=== PATIENT | female | born 1950 | race Caucasian/White ===

== ENCOUNTER 2021-07-31 11:31 | Outpatient (CLI) | payer MEDICARE ==
[2021-07-31 13:14] LABS: Mean Corpuscular HGB CONC 32.7 g/dL (32.0-36.0); Mean Corpuscular Hemoglobin 29.2 pg (27.0-33.0); Mean Corpuscular Volume 89.4 fl (81.6-98.3); Mean Platelet Volume 9.7 fl (7.4-10.4); Platelet Count 269 10x3/uL (150-450); RBC Distribution Width 12.9 % (11.5-14.5); Red Blood Cell (RBC) Count 4.79 10x6/uL (3.90-5.03); White Blood Cell (WBC) Count 6.2 10x3/uL (3.5-10.5)
[2021-07-31 13:16] LABS: Anion Gap 14 mmol/L (10-20); BUN (Urea Nitrogen) 18 mg/dL (9.8-20.1); Calc. Creatinine Clearance 0 mL/min (70-130); Calcium 9.5 mg/dL (7.8-10.44); Carbon Dioxide 24 mmol/L (23-31); Chloride 108 mmol/L (98-107); Glucose 98 mg/dL (80-115); Potassium 4.7 mmol/L (3.5-5.1); Sodium 141 mmol/L (136-145)
[2021-07-31 13:22] LABS: INR-International Normal Ratio 0.9; PTT 27.8 sec (22.0-33.0); Prothrombin Time 10.5 sec (9.5-12.1)
[2021-07-31 23:11] LABS: SARS-CoV-2 PCR by NAA Not Detected (NotDetected)
== END 2021-07-31 11:32 | disposition home or self-care (01) ==
LOC: LABBT 11:31
PROVIDERS: ATTEND Surgery
DX: Z01.818 Encounter for other preprocedural examination (principal); M48.062 Spinal stenosis, lumbar region with neurogenic claudication; M51.26 Other intervertebral disc displacement, lumbar region; M71.38 Other bursal cyst, other site; Z20.822 Contact with and (suspected) exposure to COVID-19
CPT/HCPCS: 80048; 85027; 85610; 85730; U0003; U0005; 93005; 93010

== ENCOUNTER 2021-08-05 08:06 | Observation (INO) | payer MEDICARE, OTHER ==
[2021-08-05] MEDS ORDERED: ceFAZolin 2 GM/DEX 5% 100 ML BAG ONE (08:49)
[2021-08-05] MEDS ORDERED: Thrombin 5000 UNITS/5 ML VIAL ONE ×2 (10:21→13:56)
[2021-08-05] MEDS ORDERED: Fentanyl 100 MCG/2 ML VIAL ONE ×5 (10:26→15:30)
[2021-08-05] MEDS ORDERED: Midazolam HCl 2 mg/2 ml Vial ONE (10:27)
[2021-08-05] MEDS ORDERED: Morphine 4 MG/ML VIAL SLOW IVP PRN (10:39)
[2021-08-05] MEDS ORDERED: Acetaminophen/Codeine 30-300mg Tablet PO PRN (10:39)
[2021-08-05] MEDS ORDERED: Acetaminophen 325 MG TAB PO PRN (10:39)
[2021-08-05] MEDS ORDERED: tiZANidine HCl 4 MG TAB PO PRN (10:39)
[2021-08-05] MEDS ORDERED: traMADol HCl 50 MG TAB PO PRN (10:39)
[2021-08-05] MEDS ORDERED: Glycopyrrolate 0.2 MG/ML 5 ML SYRINGE ONE (10:51)
[2021-08-05] MEDS ORDERED: PHENYLEPHRINE-NS 100 MCG/ML 10 ML SYRINGE ONE (10:51)
[2021-08-05] MEDS ORDERED: Rocuronium Bromide 10 MG/ML (10ML VIAL) ONE (10:51)
[2021-08-05] MEDS ORDERED: PROPOFOL 200 MG/20 ML VIAL ONE (10:51)
[2021-08-05] MEDS ORDERED: Lidocaine 1% PF 5 ML VIAL ONE (10:51)
[2021-08-05] MEDS ORDERED: ePHEDrine 50 MG/ML VIAL ONE (10:51)
[2021-08-05] MEDS ORDERED: Dexamethasone 20 MG/5 ML VIAL ONE (10:51)
[2021-08-05] MEDS ORDERED: Ketorolac Tromethamine 30 MG/ML VIAL ONE (10:51)
[2021-08-05] MEDS ORDERED: Phenylephrine 10 MG/ML VIAL ONE (12:42)
[2021-08-05] MEDS ORDERED: PACU-Morphine 4MG/ML VIAL SLOW IVP PRN (14:05)
[2021-08-05] MEDS ORDERED: Promethazine HCl 25 MG/ML VIAL IM PRN (14:05)
[2021-08-05] MEDS ORDERED: Promethazine HCl 25 MG/ML VIAL IVPB PRN (14:05)
[2021-08-05 17:48] VITALS: BMI 12.4
[2021-08-05] MEDS: HYDROcodone/Acetaminophen 7.5/325 mg Tablet PO PRN (19:42)
[2021-08-05] MEDS: CEFAZOLIN 2 GM in Sodium Chloride 0.9% 100 ML IVPB SCH (19:47)
[2021-08-05] MEDS ORDERED: Gabapentin 300 MG CAP PO SCH (21:00)
[2021-08-05] MEDS ORDERED: Loratadine 10 MG TAB PO SCH (21:00)
[2021-08-06] MEDS: CEFAZOLIN 2 GM in Sodium Chloride 0.9% 100 ML IVPB SCH (01:00)
[2021-08-06] MEDS: Sodium Chloride 0.9% 1,000 ML IV SCH (04:37)
[2021-08-06] MEDS ORDERED: CEFAZOLIN 2 GM, Admixture Fee 1 EACH in Sodium Chloride 0.9% 100 ML IVPB SCH (05:00)
[2021-08-06] MEDS ORDERED: Levothyroxine Sodium 100 MCG TAB PO SCH (06:00)
[2021-08-06] MEDS: HYDROcodone/Acetaminophen 7.5/325 mg Tablet PO PRN (08:26)
[2021-08-06 08:32] VITALS: TEMP 97.8
[2021-08-06] MEDS ORDERED: Losartan 25 MG TAB PO SCH (09:00)
[2021-08-06 11:47] VITALS: BP 122/65
== END 2021-08-06 11:45 | disposition home or self-care (01) ==
LOC: SDC 08:06 → T4-B 10:43
PROVIDERS: ADMIT Surgery; ATTEND Surgery
PROC: 01NB0ZZ Release Lumbar Nerve, Open Approach (ICD-10-PCS; principal; 2021-08-05)
PROC: 0QB00ZZ Excision of Lumbar Vertebra, Open Approach (ICD-10-PCS; 2021-08-05)
DX: M48.062 Spinal stenosis, lumbar region with neurogenic claudication (principal); M51.16 Intervertebral disc disorders with radiculopathy, lumbar region; M71.38 Other bursal cyst, other site; I10 Essential (primary) hypertension; E78.5 Hyperlipidemia, unspecified; E03.9 Hypothyroidism, unspecified; M19.90 Unspecified osteoarthritis, unspecified site; J30.2 Other seasonal allergic rhinitis; Z79.899 Other long term (current) drug therapy
CPT/HCPCS: 76000; 96374; 96376; G0378; J0690; J1100; J1885; J2250; J2370; J2704; J3010; J3370; J3490

== ENCOUNTER 2023-11-01 11:20 | Emergency (ER) | payer MEDICARE ==
[2023-11-01 12:10] LABS: #Basophils 0.1 thou/uL (0.0-0.2); #Eosinphils 0.2 thou/uL (0.0-0.7); #Monocytes 0.4 thou/uL (0.11-0.59); #Neutrophils 2.3 thou/uL (1.40-6.50); %Basophils 1.2 % (0.0-1.0); %Eosinophils 4.7 % (0.0-10.0); %Lymphocytes 32.1 % (21.0-51.0); %Monocytes 8.3 % (0.0-10.0); %Neutrophils 53.5 % (42.0-75.0); Hematocrit 45.6 % (36.0-47.0); Hemoglobin 14.6 g/dL (12.0-16.0); Mean Corpuscular Hemoglobin 29.1 pg (27.0-31.0); Mean Platelet Volume 9.4 fL (7.4-10.4); Platelet Count 232 10x3/uL (130-400); RBC Distribution Width 12.7 % (11.5-14.5); Red Blood Cell (RBC) Count 5.01 mill/uL (4.20-5.40); White Blood Cell (WBC) Count 4.2 10x3/uL (4.8-10.8)
[2023-11-01] MEDS ORDERED: Nitroglycerin 0.4 MG TAB (25 Tab Bottle) ONE (12:11)
[2023-11-01 12:30] LABS: Troponin I Less than 0.010 ng/mL (< 0.028)
[2023-11-01 12:31] LABS: ALT (SGPT) 29 U/L (8-55); AST (SGOT) 22 U/L (5-34); Albumin 4.2 g/dL (3.4-4.8); Alkaline Phosphatase 81 U/L (40-110); Anion Gap 10 mmol/L (10-20); BUN (Urea Nitrogen) 14 mg/dL (9.8-20.1); Bilirubin, Total 0.4 mg/dL (0.2-1.2); Calc. Creatinine Clearance 0 mL/min (70-130); Calcium 9.2 mg/dL (7.8-10.44); Carbon Dioxide 24 mmol/L (23-31); Chloride 109 mmol/L (98-107); Estimated GFR 77; Globulin 2.9 g/dL (2.4-3.5); Glucose 103 mg/dL (83-110); Lipase 26 U/L (8-78); Potassium 4.3 mmol/L (3.5-5.1); Protein, Total 7.1 g/dL (5.8-8.1); Sodium 139 mmol/L (136-145)
[2023-11-01] MEDS ORDERED: Iopamidol-370 76% 500 ML MDV (1 ML CHARGE) ONE (13:38)
[2023-11-01] MEDS ORDERED: Azithromycin 500 MG VIAL ONE (15:26)
[2023-11-01] MEDS ORDERED: Aspirin Chewable 81 MG TAB ONE (15:26)
[2023-11-01 16:41] LABS: Troponin I Less than 0.010 ng/mL (< 0.028)
== END 2023-11-01 17:40 | disposition home or self-care (01) ==
LOC: ERS 11:20
DX: J18.9 Pneumonia, unspecified organism (principal); I10 Essential (primary) hypertension; E03.9 Hypothyroidism, unspecified; K21.9 Gastro-esophageal reflux disease without esophagitis; Z79.899 Other long term (current) drug therapy
CPT/HCPCS: 71045; 71275; 80053; 83690; 83880; 84484 ×2; 85025; 93005; J0456; 36415; 96365; Q9967

== ENCOUNTER 2023-11-26 08:01 | Outpatient (CLI) | payer MEDICARE ==
[2023-11-26] MEDS ORDERED: Iopamidol-370 76% 500 ML MDV (1 ML CHARGE) ONE (14:48)
== END 2023-11-26 08:02 | disposition home or self-care (01) ==
LOC: BICCT 08:01
PROVIDERS: ATTEND Internal Medicine Gastroenterology
DX: R10.13 Epigastric pain (principal); K76.0 Fatty (change of) liver, not elsewhere classified; K42.9 Umbilical hernia without obstruction or gangrene; N63.10 Unspecified lump in the right breast, unspecified quadrant; Z90.49 Acquired absence of other specified parts of digestive tract
CPT/HCPCS: 74177; Q9967